=== PATIENT | female | born 1985 | race Two or more races ===

== ENCOUNTER 2020-06-13 11:50 | Emergency (ER) | payer OTHER ==
[~2020-06-13] VITALS: Ht 165.1 cm; Wt 73.5 kg
--- NOTE | 2020-06-13 12:22 | NUR ---
[employer]ATING [employer] OFFICER: PT TO ROOM FROM LOBBY
[2020-06-13] MEDS ORDERED: ACETAMINOPHEN 500 MG TABLET PO ONE (13:00)
[2020-06-13] MEDS ORDERED: ACETAMINOPHEN 500 MG TABLET ONE (13:09)
[2020-06-13] MEDS ORDERED: SODIUM CHLORIDE FLUSH 10ML SYR IVF ONE (13:30)
[2020-06-13] MEDS ORDERED: SODIUM CHLORIDE 0.9% 1,000ML IVBOLUS ONE (13:30)
[2020-06-13] MEDS ORDERED: DEXAMETHASONE 4 MG/ML, 1ML IVPush ONE (13:30)
[2020-06-13] MEDS ORDERED: DEXAMETHASONE 4 MG/ML, 5ML ONE (13:38)
[2020-06-13] MEDS ORDERED: AZITHROMYCIN 500 MG TABLET ONE (13:59)
[2020-06-13] MEDS ORDERED: ASPIRIN 81 MG TABLET CHEW ONE (13:59)
[2020-06-13] MEDS ORDERED: ASPIRIN 81 MG TABLET CHEW PO ONE (14:00)
[2020-06-13] MEDS ORDERED: AZITHROMYCIN 500 MG TABLET PO ONE (14:00)
[2020-06-13 15:59] VITALS: BP 116/71
--- NOTE | 2020-06-13 16:01 | NUR ---
TASK RN: Patient/Caregiver given discharge instructions and they have confirmed that they understand the instructions. Patient ambulatory with steady gait.
== END 2020-06-13 16:02 | disposition home or self-care (01) ==
LOC: ED 14:00
DX: U07.1 COVID-19 (principal); J12.82 Pneumonia due to coronavirus disease 2019; B34.9 Viral infection, unspecified
CPT/HCPCS: 71045; 87635; 93005; 96361; 96374; 99285; J1100; J7030

== ENCOUNTER 2020-06-16 22:32 | Emergency (ER) | payer SELFPAY ==
[~2020-06-16] VITALS: Ht 165.1 cm; Wt 70.7 kg
[2020-06-17 00:13] VITALS: BP 114/74
== END 2020-06-17 00:15 | disposition home or self-care (01) ==
LOC: ED 22:53
DX: U07.1 COVID-19 (principal); R06.02 Shortness of breath; R05 Cough; R00.0 Tachycardia, unspecified; R07.89 Other chest pain; R06.00 Dyspnea, unspecified; M79.10 Myalgia, unspecified site
CPT/HCPCS: 71045; 93005; 99283; J7512